=== PATIENT | male | born 1945 | race Caucasian/White ===

== ENCOUNTER 2017-06-29 01:36 | Emergency (ER) | payer MEDICARE, BC ==
[~2017-06-29] VITALS: Ht 188 cm; Wt 94.3 kg
[~2017-06-29 01:36] MED LIST: AMLO2.5T2 PO; CHLO25CA22 PO; DIAZ5TAB4 PO; DOXA2TAB PO; PANT40TA2 PO
--- NOTE | 2017-06-29 01:58 | NUR ---
Pt states he had a very stressful day, c/o chest pressure w/o pain. States there was pain and SOB earlier, and he is recovering from a cold with congestion and cough. Pt also states he has had vertigo for several weeks as well. Pt denies numbness/tingling, n/v, no other complaints, no distress noted, but pt does appear slightly anxious.
[2017-06-29] MEDS ORDERED: DIAZEPAM 10 MG/2 ML DISP.SYRIN IV ONE (02:15)
[2017-06-29] MEDS ORDERED: DIAZEPAM 10 MG/2 ML DISP.SYRIN ONE ×2 (02:45→02:50)
[2017-06-29 02:49] LABS: BASOPHILS % (AUTO) 0.4 % (0.0-2.0); EOSINOPHILS # (AUTO) 0.2 K/uL (0.0-0.7); HEMATOCRIT 38.2 % (40-50); HEMOGLOBIN 12.5 G/DL (14.0-18.0); LYMPHOCYTES # (AUTO) 3.6 K/UL (0.8-4.8); LYMPHOCYTES % (AUTO) 43.8 % (20.5-51.5); MEAN CORPUSCULAR HEMOGLOBIN 29.4 UUG (27.0-31.0); MEAN CORPUSCULAR HGB CONC 33 g/dL (32.0-37.0); MEAN CORPUSCULAR VOLUME 89.5 FL (82.0-92.0); MONOCYTES # (AUTO) 0.6 K/UL (0.1-1.30); MONOCYTES % (AUTO) 7.9 % (0.0-11.0); NEUTROPHILS # (AUTO) 3.8 K/UL (1.8-8.9); NEUTROPHILS % (AUTO) 44.9 % (38.5-71.5); PLATELET COUNT (AUTO) 230 K/UL (150-450); RED BLOOD CELL COUNT(AUTO) 4.27 MIL/UL (4.7-6.1); WHITE BLOOD COUNT (AUTO) 8.2 K/UL (4.0-11.2)
[2017-06-29 02:57] LABS: CREATININE 1.1 mg/dL (0.6-1.3); POTASSIUM 3.8 mmol/L (3.5-5.1)
[2017-06-29 03:11] LABS: BILIRUBIN,DIRECT 0.1 mg/dL (0.0-0.2); BILIRUBIN,TOTAL 0.5 mg/dL (0.2-1.0); TOTAL PROTEIN, SERUM 7.9 g/dL (6.4-8.2)
--- NOTE | 2017-06-29 03:42 | NUR ---
IV removed intact, site okay, bandaged. Gave pt. test results and d/c instructions, verbalized understanding.
[2017-06-29 03:44] VITALS: BP 164/87
--- NOTE | 2017-07-03 07:18 | NUR ---
On 06/29/2017, the medication machine malfunctioned during the withdrawl of Valium. The dose was left in place and the door and drawer were closed. The machine was rebooted and the dose (2.5mg) was pulled out at that point. There was only 1 dose ordered and 1 dose administered. Charge nurse was notified at the time.
== END 2017-06-29 03:45 | disposition home or self-care (01) ==
LOC: ER 01:39
DX: R07.9 Chest pain, unspecified (principal); F41.9 Anxiety disorder, unspecified; R06.00 Dyspnea, unspecified; I10 Essential (primary) hypertension; K58.9 Irritable bowel syndrome, unspecified
CPT/HCPCS: 36415; 71010; 80048; 80076; 83880; 84484; 85025; 85379; 85730; 93005; 96374; 99285; A4663; J3360 ×2; 70030-TC